=== PATIENT | female | born 1980 | race Caucasian/White ===

== ENCOUNTER 2022-10-19 05:00 | Emergency (ER) | payer BC, SELFPAY ==
[2022-10-19 05:18] VITALS: BP 138/88; PULSE 72; RESP 18; TEMP 36.7; O2SAT 99; BMI 35.6
--- NOTE | 2022-10-19 05:43 | ED_ITS ---
HPI - General Adult General Time Seen by Provider: 05:44 Date Seen: 10/19/22 Chief complaint: Ear/Nose/Throat Problem Stated complaint: r. ear pain (thinks critter) Time Seen by Provider: 10/19/22 05:18 Source: patient Mode of arrival: ambulatory Limitations: no limitations History of Present Illness HPI narrative: 42-year-old female who comes in with concern for bug in her ear. She feels pressure in her ear and a crackling sound. She has been using Q-tips also wears earplugs at work with no improvement. Related Data Home Medications Medication Instructions Recorded Confirmed gabapentin 300 mg capsule 300 mg PO TID 10/19/22 10/19/22 lisdexamfetamine 60 mg capsule 60 mg PO DAILY 10/19/22 10/19/22 (Vyvanse) trazodone 150 mg tablet 150 mg PO QPM 10/19/22 10/19/22 Previous Rx's Medication Instructions Recorded fluticasone propionate 50 2 spray intranasal DAILY #16 grams 10/19/22 mcg/actuation nasal spray,suspension (Flonase Allergy Relief) Allergies Allergy/AdvReac Type Severity Reaction Status Date / Time No Known Drug Allergies Allergy Verified 10/19/22 05:26 Review of Systems Status of ROS: Reports: 10 or more systems reviewed and unremarkable except as noted in History and below Exam Narrative: Exam Narrative: General: well nourished , NAD Head: Atraumatic and normocephalic ENT: External ears and external nose are normal. Scarring of the tympanic membranes bilaterally Eyes: Conjunctiva clear, pupils are equal reactive, external ocular motions are intact Neck: Full spontaneous range of motion of the neck Lungs: No respiratory distress Musculoskeletal: No tenderness or deformity Neurologic: No gross focal neurologic deficits Skin: No rashes Psych: Mood and affect are appropriate Const: Vital Signs, click to edit/add: Vital Signs - 24 hr 10/19/22 05:18 Temperature 98.0 F Pulse Rate [Right Pulse Oximeter] 72 Respiratory Rate 18 Blood Pressure [Ri ght Upper Arm] 138/88 Pulse Oximetry 99 Oxygen Delivery Me thod Room Air Course Course Hospital Course: Patient seen and examined, prior records reviewed. Patient presents today with right ear pressure and crackling sound. External auditory canal is intact, tympanic membrane is bulging. Symptoms are most consistent with otitis media with effusion. Patient will be started on Flonase and can follow up with primary care as needed. Vital Signs Vital signs: Initial Vital Signs Temperature 98.0 F 10/19/22 05:18 Temperature Source Temporal Artery Scan 10/19/22 05:18 Pulse Rate 72 10/19/22 05:18 Respiratory Rate 18 10/19/22 05:18 Blood Pressure 138/88 10/19/22 05:18 Blood Pressure Mean 104 10/19/22 05:18 Blood Pressure Position Sitting 10/19/22 05:18 Pulse Oximetry 99 10/19/22 05:18 Oxygen Delivery Method Room Air 10/19/22 05:18 Vital Signs Temperature 98.0 F 10/19/22 05:18 Pulse Rate 72 10/19/22 05:18 Respiratory Rate 18 10/19/22 05:18 Blood Pressure 138/88 10/19/22 05:18 Pulse Oximetry 99 10/19/22 05:18 Oxygen Delivery Method Room Air 10/19/22 05:18 Temperature 98.0 F 10/19/22 05:18 Pulse Rate 72 10/19/22 05:18 Respiratory Rate 18 10/19/22 05:18 Blood Pressure 138/88 10/19/22 05:18 Pulse Oximetry 99 10/19/22 05:18 Oxygen Delivery Method Room Air 10/19/22 05:18 Medical Decision Making Medical Records Medical records reviewed: Yes I reviewed the patient's medical records Lab Data Lab results reviewed: Yes I reviewed the patient's lab results Discharge Plan Discharge Clinical Impression: Middle ear effusion Patient Disposition: Home, Self-Care Condition: Stable Instructions: Fluid In The Ear (Serous Otitis Media) (ED) Additional Instructions: Azalea Carrera MD- Dermatology [address] [place] [address] Activity Level: No Restrictions Discharge Diet: Regular Prescriptions: New fluticasone propionate [Flonase Allergy Relief] 50 mcg/actuation spray,suspension 2 spray intranasal DAILY Qty: 16 0RF Rx Instructions: administer into each nostril No Action gabapentin 300 mg capsule 300 mg PO TID trazodone 150 mg tablet 150 mg PO QPM Vyvanse 60 mg capsule 60 mg PO DAILY Follow Up/Referrals: Provider,Not a Local [Primary Care Provider] - Stand Alone [facility]: [facility] Info Inst[facility]
== END 2022-10-19 06:18 | disposition home or self-care (01) ==
LOC: ED 06:18
PROVIDERS: Emergency Provider Family Medicine
DX: H74.8X1 Other specified disorders of right middle ear and mastoid (principal)
CPT/HCPCS: 99282; 99283

== ENCOUNTER 2023-03-26 20:59 | Emergency (ER) | payer OTHER, BC, SELFPAY ==
[2023-03-26 21:12] VITALS: BP 147/101; PULSE 98; RESP 16; TEMP 37.1; O2SAT 99; BMI 35.3
--- NOTE | 2023-03-26 21:26 | CRLHL7_ITS ---
For Patients: As a result of the Century Cures Act, medical imaging exams and procedure reports are released immediately into your electronic medical record. You may view this report before your referring provider. If you have questions, please contact your health care provider. INDICATION: LT sided head injury - hit concrete pole, RT arm tingling, headache and ringing in bilateral ears. TECHNIQUE: CT head without contrast. Permanently recorded images are archived. COMPARISON: None. FINDINGS: CSF spaces: Within normal limits for age. Brain parenchyma and extra-axial spaces: The gerber-white differentiation is normal. No sign of mass, hemorrhage, or midline shift. No extra-axial fluid collection. Skull base and calvarium: The visualized paranasal sinuses demonstrate no acute or significant findings. The mastoid air cells are clear. The visualized orbits are grossly unremarkable. No skull fractures. IMPRESSION: Unremarkable noncontrast head CT. No evidence of an acute intracranial abnormality. Please note that all CT scans at this facility use dose modulation, iterative reconstruction, and/or weight-based dosing when appropriate to reduce radiation dose to as low as reasonably achievable. Dictated by Ben Knox MD @ 03/26/2023 10:23:14 PM (Electronically Signed)
--- NOTE | 2023-03-26 21:26 | CRLHL7_ITS ---
For Patients: As a result of the Century Cures Act, medical imaging exams and procedure reports are released immediately into your electronic medical record. You may view this report before your referring provider. If you have questions, please contact your health care provider. INDICATION: Neck trauma. TECHNIQUE: CT cervical spine without contrast. COMPARISON: None. FINDINGS: Vertebrae: Reversal of the cervical lordosis. There are no fractures or suspicious bony lesions. Discs and facet joints: Disc spaces and facets are within normal limits. Extraspinal findings: Prevertebral soft tissues, visualized airway, and visualized lungs are unremarkable. IMPRESSION: Reversal of the cervical lordosis, which can be seen with neck strain or muscle spasm. No acute bony abnormality. Please note that all CT scans at this facility use dose modulation, iterative reconstruction, and/or weight-based dosing when appropriate to reduce radiation dose to as low as reasonably achievable. Dictated by Ben Knox MD @ 03/26/2023 10:25:05 PM (Electronically Signed)
--- NOTE | 2023-03-26 22:03 | ED.HEATRA ---
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 She says she has ringing in her ear since this occurred approximately 3 hours ago, in feels that her speech is just a little bit off. She has no photophobia, she has no nausea, she has a little bit of tingling that comes down her right arm. She thinks this may be from a previous disc herniation that she has had. And she tita herself. She has had no weakness associated with this and no real pain. She is not taking any medications for this but thought she should get checked. No previous history of head injuries. MD Complaint: head injury Mechanism of Injury: work related injury Place: work Loss of Consciousness: no Location of injury: occipital Severity: moderate Radiation: RUE Other Injuries: none Associated symptoms: confusion Related Data Home Medications Medication Instructions Recorded Confirmed gabapentin 300 mg capsule 300 mg PO TID 10/19/22 10/19/22 lisdexamfetamine 60 mg capsule 60 mg PO DAILY 10/19/22 10/19/22 (Vyvanse) trazodone 150 mg tablet 150 mg PO QPM 10/19/22 10/19/22 Previous Rx's Medication Instructions Recorded fluticasone propionate 50 2 spray intranasal DAILY #16 grams 10/19/22 mcg/actuation nasal spray,suspension (Flonase Allergy Relief) Allergies Allergy/AdvReac Type Severity Reaction Status Date / Time No Known Drug Allergies Allergy Verified 10/19/22 05:26 Review of Systems Status of ROS: Reports: 10 or more systems reviewed and unremarkable except as noted in History and below [facility] Social History Smoking Status: Unknown if ever smoked Second hand tobacco smoke exposure: No How often do you have a drink containing alcohol: never AUDIT-C Alcohol total score: 0 Non-prescribed substance use: denies use Exam Narrative: Exam Narrative: On examination she is in no apparent distress she is seen in room 7, her pupils are equal round reactive to light there is no scleral icterus redness, she tracks normally with absence of nystagmus or TMs are normal bilaterally with evidence of previous scarring from PE tubes. No lymphadenopathy anterior posterior chains oropharynx is normal her range of motion of her neck is excellent she can come from 4 cm through 24 cm in flexion extension, her lateral flexion is 20?, and her rotation is greater than 75? bilaterally. No palpable tenderness is noted on her neck on palpation, she is alert oriented x3, with a GCS of 15/15, she is not perseverating. 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 Const: Vital Signs, click to edit/add: Vital Signs - 24 hr 03/26/23 21:12 03/26/23 23:44 Temperature 98.7 F Pulse Rate [Left P ulse Oximeter] 98 84 Respiratory Rate 16 20 Blood Pressure [Ri ght Upper Arm] 147/101 H 132/101 H Pulse Oximetry 99 96 Oxygen Delivery Me thod Room Air Room Air Course Course ED Course: Head and neck CT were negative, I do believe that she does have a concussion, she will take some Tylenol for this. She is not nauseous. I think it would be reasonable let her go home there is also a possibility she tita her neck is she does have the history of the previous degenerative disc disease. Follow-up is going to be imperative in she may require physical therapy or other modalities to help her with this. I will keep her off work for the next 48 hours, of which she should follow-up with primary care after this. Vital Signs Vital signs: Initial Vital Signs Temperature 98.7 F 03/26/23 21:12 Temperature Source Temporal Artery Scan 03/26/23 21:12 Pulse Rate 98 03/26/23 21:12 Respiratory Rate 16 03/26/23 21:12 Blood Pressure 147/101 H 03/26/23 21:12 Blood Pressure Mean 116 H 03/26/23 21:12 Blood Pressure Position Sitting 03/26/23 21:12 Pulse Oximetry 99 03/26/23 21:12 Oxygen Delivery Method Room Air 03/26/23 21:12 Vital Signs Temperature 98.7 F 03/26/23 21:12 Pulse Rate 98 03/26/23 21:12 Respiratory Rate 16 03/26/23 21:12 Blood Pressure 147/101 H 03/26/23 21:12 Pulse Oximetry 99 03/26/23 21:12 Oxygen Delivery Method Room Air 03/26/23 21:12 Temperature 98.7 F 03/26/23 21:12 Pulse Rate 84 03/26/23 23:44 Respiratory Rate 20 03/26/23 23:44 Blood Pressure 132/101 H 03/26/23 23:44 Pulse Oximetry 96 03/26/23 23:44 Oxygen Delivery Method Room Air 03/26/23 23:44 MDM - Head Injury MDM Narrative Medical decision making narrative: I discussed with her that we will do a CT of her head /neck, Differential Diagnosis Differential diagnosis: Likely concussion without loss of consciousness, epidural hematoma, closed head injury, postconcussion syndrome and subdural hematoma Medical Records Attestation: I reviewed the patient's medical records. Discharge Plan Discharge Clinical Impression: Concussion without loss of consciousness, Neck and shoulder pain, Arm paresthesia, right Patient Disposition: Home, Self-Care Condition: Stable Instructions: Concussion (ED), Cognitive Disorders after Traumatic Brain Injury (ED), Paresthesia (ED), Post Concussion Syndrome (ED), Arm Pain (ED) Additional Instructions: Home, rest, off work for 48 hours, note given, then follow-up with primary care, Tylenol 1 g p.o. t.i.d. for the 1st 24 hours then you may resume taking your leave. Return here if ongoing problems with vomiting or other issues. I would avoid watching too much TV sleeping is good, and I would also avoid exercising. Activity Level: Light activity Discharge Diet: Regular Prescriptions: No Action gabapentin 300 mg capsule 300 mg PO TID trazodone 150 mg tablet 150 mg PO QPM Vyvanse 60 mg capsule 60 mg PO DAILY fluticasone propionate [Flonase Allergy Relief] 50 mcg/actuation spray,suspension 2 spray intranasal DAILY Qty: 16 0RF Rx Instructions: administer into each nostril Follow Up/Referrals: Provider,Not a Local [Primary Care Provider] - Stand Alone Forms: [facility] Info Instructions
[2023-03-26] MEDS: ACETAMINOPHEN 500 MG TABLET 1000 MG PO (22:53)
[2023-03-26 23:44] VITALS: BP 132/101; PULSE 84; RESP 20; O2SAT 96
== END 2023-03-26 23:45 | disposition home or self-care (01) ==
PROVIDERS: Emergency Provider Family Medicine
DX: S06.0X0A Concussion without loss of consciousness, initial encounter (principal); M54.2 Cervicalgia; R20.2 Paresthesia of skin; V83.5XXA Driver of special industrial vehicle injured in nontraffic accident, initial encounter
CPT/HCPCS: 70450; 72125; 99284; A9270